=== PATIENT | male | born 1965 | race Caucasian/White ===

== ENCOUNTER 2018-04-28 08:07 | Emergency (ER) | payer SELFPAY ==
[2018-04-28] MEDS ORDERED: Nitroglycerin 0.4 MG Tab.SL SL PRN (08:22)
[2018-04-28] MEDS ORDERED: Aspirin 81 MG Tab.Chew PO ONE (08:22)
[2018-04-28] MEDS ORDERED: Sodium Chloride 0.9% 10 ML Syringe FLUSH PRN (08:22)
[2018-04-28] MEDS ORDERED: Aspirin 81 MG Tab.Chew ONE (08:23)
[2018-04-28] MEDS: Morphine 4 MG/ML Syringe IVPUSH PRN ×2 (08:27→11:01)
--- NOTE | 2018-04-28 08:27 | EDM.PDOC ---
ED HPI GENERAL MEDICAL PROBLEM - General Chief Complaint: Chest Pain Stated Complaint: CHEST PAIN Time Seen by Provider: 04/28/18 08:24 Source of Information: Reports: Patient, Family, Old Records, RN Notes Reviewed History Limitations: Reports: No Limitations - History of Present Illness INITIAL COMMENTS - FREE TEXT/NARRATIVE: 53-year-old gentleman presents to the emergency department today complaint of chest pressure, he has a known history coronary artery disease recently underwent stenting in January of this year 1 in the [facility]. Last night he initially had some indigestion eye this morning he was going out for a walk developed chest pain rated it 7 out of 10 he did take 1 nitroglycerin which provided some relief dropped his pain to 4 out of 10 he denies any nausea shortness of breath diaphoresis Chest Pain Score (Numeric/FACES): 4 - Related Data Allergies Allergy/AdvReac Type Severity Reaction Status Date / Time No Known Allergies Allergy Verified 11/28/14 10:28 Home Meds: Home Meds Albuterol Sulfate [Proair Hfa] 1 inh INH Q4H PRN 04/28/18 [History] Aspirin [Adult Aspirin] 1 tab PO DAILY 04/28/18 [History] Clopidogrel [Plavix] 1 tab PO DAILY 04/28/18 [History] EPINEPHrine [Epinephrine] 1 injection SQ ASDIRECTED 04/28/18 [History] Losartan [Cozaar] 1 tab PO DAILY 04/28/18 [History] Metoprolol Succinate 1 tab PO DAILY 04/28/18 [History] Omeprazole 20 mg PO DAILY 04/28/18 [History] Past Medical History Cardiovascular History: Reports: CAD, High Cholesterol, Hypertension, CT Musculoskeletal History: Reports: Back Pain, Chronic - Past Surgical History Cardiovascular Surgical History: Reports: Coronary Artery Stent GI Surgical History: Reports: Colon Musculoskeletal Surgical History: Reports: Arthroscopic Knee Social & Family History - Tobacco Use Smoking Status *Q: Never Smoker - Caffeine Use Caffeine Use: Reports: Coffee - Recreational Drug Use Recreational Drug Use: No ED ROS GENERAL - Review of Systems Review Of Systems: See Below Constitutional: Reports: No Symptoms HEENT: Reports: No Symptoms Respiratory: Reports: No Symptoms Cardiovascular: Reports: Chest Pain GI/Abdominal: Reports: No Symptoms : Reports: No Symptoms Musculoskeletal: Reports: No Symptoms Skin: Reports: No Symptoms Neurological: Reports: No Symptoms ED EXAM, GENERAL - Physical Exam Exam: See Below Free Text/Narrative:: General: Male, not in any distress, alert and oriented x3 HEENT: head is atraumatic normocephalic, eyes pupils equal round reactive to light, sclera clear no conjunctivitis appreciated. Ears tympanic membranes clear and joiner landmarks and light reflex are present bilaterally canals are clear. Nose no septal deviation, nares are clear, no blood present. Mouth mucosa is moist and pink no erythema or exudate noted in soft palate, tongue is midline uvula is midline, dentition is intact. Neck: Supple no thyromegaly no tracheal deviation. Nodes: Cervical nodes subclavicular nodes nontender no palpable lymphadenopathy noted. Lungs: clear to auscultation bilaterally with symmetrical respirations, no adventitious noise appreciated. CV: Regular rate and rhythm S1 and S2 appreciated no murmurs rubs or gallops noted. Abdomen: Soft, nontender, no palpable masses or organomegaly appreciated, no distention no guarding bowel sounds are present, . Neuro: Cranial nerves II through XII grossly intact Skin: Warm and dry, intact Extremities: No lower extremity edema appreciated, Course - Vital Signs Last Recorded V/S: Last Vital Signs Temp 95.8 F 04/28/18 08:24 Pulse 71 04/28/18 08:24 Resp 12 04/28/18 08:24 BP 107/66 04/28/18 08:24 Pulse Ox 98 04/28/18 08:24 - Orders/Labs/Meds Orders: Active Orders 24 hr Category Date Time Status Cardiac Monitoring [RC] .As Directed Care 04/28/18 08:23 Active EKG Documentation Completion [RC] ASDIRECTED Care 04/28/18 08:23 Active Peripheral IV Care [RC] . DIRECTED Care 04/28/18 08:23 Active Chest 1V Frontal [CR] Stat Exams 04/28/18 08:23 Taken Heparin Sodium/D5W [Heparin 25,000 Units in D5W 500 ML] Med 04/28/18 09:30 Active 25,000 units in 500 ml IV TITRATE Morphine Med 04/28/18 08:22 Active 4 mg IVPUSH Q10M PRN Nitroglycerin [Nitrostat] Med 04/28/18 08:22 Active 0.4 mg SL Q5M PRN Sodium Chloride 0.9% [Saline Flush] Med 04/28/18 08:22 Active 10 ml FLUSH ASDIRECTED PRN Peripheral IV Insertion Adult [OM.PC] Stat Oth 04/28/18 08:22 Ordered Saline Lock Insert [OM.PC] Stat Oth 04/28/18 08:22 Ordered EKG 12 Lead [EK] Stat Ther 04/28/18 08:23 Ordered Medication Orders Heparin Sodium/Dextrose (Heparin 25,000 Units In D5w 500 Ml) 25,000 units in 500 mls @ 23.405 mls/hr IV TITRATE JORDIN; Protocol Morphine Sulfate (Morphine) 4 mg IVPUSH Q10M PRN PRN Reason: Chest Pain Stop: 04/29/18 08:23 Last Admin: 04/28/18 08:27 Dose: 4 mg Nitroglycerin (Nitrostat) 0.4 mg SL Q5M PRN PRN Reason: Chest Pain Stop: 04/29/18 08:23 Sodium Chloride (Saline Flush) 10 ml FLUSH ASDIRECTED PRN PRN Reason: Keep Vein Open Last Admin: 04/28/18 08:30 Dose: 10 ml Labs: Laboratory Tests 04/28/18 04/28/18 04/28/18 Range/Units 08:25 08:25 08:25 WBC 7.3 (4.5-11.0) K/uL RBC 5.25 (4.30-5.90) M/uL Hgb 16.0 H (12.0-15.0) g/dL Hct 47.0 (40.0-54.0) % MCV 90 (80-98) fL MCH 31 (27-31) pg MCHC 34 (32-36) % Plt Count 238 (150-400) K/uL Neut % (Auto) 51 (36-66) % Lymph % (Auto) 31 (24-44) % [place] % (Auto) 8 H (2-6) % Eos % (Auto) 8 H (2-4) % Baso % (Auto) 1 (0-1) % PT 11.4 (9.5-12.0) sec INR 1.04 (0.80-1.20) Sodium 138 L (140-148) mmol/L Potassium 4.3 (3.6-5.2) mmol/L Chloride 105 (100-108) mmol/L Carbon Dioxide 27 (21-32) mmol/L Anion Gap 10.3 (5.0-14.0) mmol/L BUN 19 H (7-18) mg/dL Creatinine 1.2 (0.8-1.3) mg/dL Est Cr Clr Drug Dosing 78.14 mL/min Estimated GFR (MDRD) > 60 (>60) Glucose 114 H (74-106) mg/dL Calcium 8.5 (8.5-10.1) mg/dL Total Bilirubin 0.4 (0.2-1.0) mg/dL AST 34 (15-37) U/L ALT 44 (12-78) U/L Alkaline Phosphatase 51 (46-116) U/L CK-MB (CK-2) 3.0 (0-3.6) mg/mL Troponin I < 0.017 (0.000-0.056) ng/mL Total Protein 6.9 (6.4-8.2) g/dL Albumin 3.4 (3.4-5.0) g/dL Globulin 3.5 (2.3-3.5) g/dL Albumin/Globulin Ratio 1.0 L (1.2-2.2) Meds: Medications Generic Name Dose Route Start Last Admin Trade Name Freq PRN Reason Stop Dose Admin Heparin Sodium/Dextrose 25,000 units in 500 mls @ 23.405 mls/hr 04/28/18 09: 30 Heparin 25,000 Units In D5w 500 Ml IV TITRATE JORDIN Protocol 12 UNITS/KG/HR Morphine Sulfate 4 mg 04/28/18 08:22 04/28/18 08:27 Morphine IVPUSH 04/29/18 08:23 4 mg Q10M PRN Administration Chest Pain Nitroglycerin 0.4 mg 04/28/18 08:22 Nitrostat SL 04/29/18 08:23 Q5M PRN Chest Pain Sodium Chloride 10 ml 04/28/18 08:22 04/28/18 08:30 Saline Flush FLUSH 10 ml ASDIRECTED PRN Administration Keep Vein Open Discontinued Medications Generic Name Dose Route Start Last Admin Trade Name Freq PRN Reason Stop Dose Admin Aspirin 324 mg 04/28/18 08:22 04/28/18 08:29 Aspirin PO 04/28/18 08:23 243 mg ONETIME ONE Administration Aspirin Confirm 04/28/18 08:23 04/28/18 08:30 Aspirin Administered 04/28/18 08:24 Not Given Dose 243 mg .ROUTE .STK-MED ONE Heparin Sodium (Porcine) 4,000 units 04/28/18 09:16 04/28/18 09:24 Heparin Sodium IVPUSH 04/28/18 09:17 4,000 units ONETIME ONE Administration Departure - Departure Time of Disposition: 09:37 Disposition: DC/Tfer to Acute Hospital 02 Reason for Transfer *Q: Primary PCI Indicated Condition: Good Clinical Impression: Acute coronary syndrome Referrals: Harish Maldonado MD [Primary Care Provider] - Forms: ED Department Discharge - My Orders Last 24 Hours: My Active Orders 04/28/18 08:22 Morphine 4 mg IVPUSH Q10M PRN Nitroglycerin [Nitrostat] 0.4 mg SL Q5M PRN Sodium Chloride 0.9% [Saline Flush] 10 ml FLUSH ASDIRECTED PRN Peripheral IV Insertion Adult [OM.PC] Stat Saline Lock Insert [OM.PC] Stat 04/28/18 08:23 Cardiac Monitoring [RC] .As Directed EKG Documentation Completion [RC] ASDIRECTED Peripheral IV Care [RC] . DIRECTED Chest 1V Frontal [CR] Stat EKG 12 Lead [EK] Stat 04/28/18 09:30 Heparin Sodium/D5W [Heparin 25,000 Units in D5W 500 ML] 25,000 units in 500 ml IV TITRATE - Assessment/Plan Last 24 Hours: My Active Orders 04/28/18 08:22 Morphine 4 mg IVPUSH Q10M PRN Nitroglycerin [Nitrostat] 0.4 mg SL Q5M PRN Sodium Chloride 0.9% [Saline Flush] 10 ml FLUSH ASDIRECTED PRN Peripheral IV Insertion Adult [OM.PC] Stat Saline Lock Insert [OM.PC] Stat 04/28/18 08:23 Cardiac Monitoring [RC] .As Directed EKG Documentation Completion [RC] ASDIRECTED Peripheral IV Care [RC] . DIRECTED Chest 1V Frontal [CR] Stat EKG 12 Lead [EK] Stat 04/28/18 09:30 Heparin Sodium/D5W [Heparin 25,000 Units in D5W 500 ML] 25,000 units in 500 ml IV TITRATE Plan: Assessment Acuity = acute Site and laterality = coronary syndrome complicated patient with known history coronary artery disease Etiology = suspicious for underlying exacerbation coronary artery disease Manifestations = chest pain atypical Location of injury = Home Lab values = CBC, CMP, troponin, CK-MB unremarkable chest x-ray I did review films myself I cannot appreciate any acute process, the official read from radiology is pending EKG reveals sinus rhythm there is T-wave inversions in 1 aVL, Q waves in V1 and V2 there is no ST depressions or elevations EKG is similar to EKG from January of this year Plan Called discussed case with mail room from [facility] Dr. Cutler who is concerned of ongoing coronary artery disease and recommended catheterization, plan to transfer via EMS services ground heparin bolus and heparin drip initiated to the [facility] facility for cardiac catheterization. The clinic discussed case with hospitalist instructional writer Dr. Martino who kindly accepted the patient in transport This note was dictated using [employer] voice recognition software please call with any questions on syntax or grammar.
[2018-04-28] MEDS ORDERED: Heparin Sodium 5,000 Units/ML Vial IVPUSH ONE (09:16)
[2018-04-28] MEDS ORDERED: Heparin Sodium/D5W 25,000 UNITS/500 ML BAG IV SCH (09:30)
[2018-04-28 10:45] VITALS: BP 117/84
--- NOTE | 2018-04-30 08:43 | CR ---
CHEST: Portable CLINICAL HISTORY:Chest pain COMPARISON:CT February 09, 2018 FINDINGS: Lung macdonald are clear heart size and pulmonary vascularity are normal.. IMPRESSION: No acute cardiopulmonary process or significant change from prior study
== END 2018-04-28 11:06 ==
LOC: JP.ED 08:07
DX: I24.9 Acute ischemic heart disease, unspecified (principal); I10 Essential (primary) hypertension; I25.2 Old myocardial infarction; Z79.82 Long term (current) use of aspirin
CPT/HCPCS: 36415; 71045; 80053; 82553; 84484; 85025; 85610; 93005; 96374; 96375; 96376; 99285; A9270; J1644; J2270; J7050

== ENCOUNTER 2022-03-10 08:36 | Day surgery (SDC) | payer SELFPAY ==
[2022-03-10] MEDS ORDERED: Lactated Ringers 1,000 ML IV SCH (09:15)
[2022-03-10] MEDS ORDERED: fentaNYL 100 MCG/2 ML SDV ONE (09:25)
[2022-03-10] MEDS ORDERED: Propofol 200 MG/20 ML SDV ONE (09:25)
[2022-03-10] MEDS ORDERED: Midazolam 1 MG/ML 2 ML SDV ONE (09:25)
[2022-03-10] MEDS ORDERED: Glycopyrrolate 0.2 MG/ML 2 ML SDV ONE (10:32)
[2022-03-10 11:37] VITALS: BP 131/81; PULSE 86
== END 2022-03-10 11:00 | disposition home or self-care (01) ==
LOC: JP.SDS 08:36
PROVIDERS: ATTEND Surgery
DX: R13.10 Dysphagia, unspecified (principal); K44.9 Diaphragmatic hernia without obstruction or gangrene; T18.2XXA Foreign body in stomach, initial encounter; I25.2 Old myocardial infarction; I10 Essential (primary) hypertension; K21.9 Gastro-esophageal reflux disease without esophagitis; Z01.812 Encounter for preprocedural laboratory examination; Z20.822 Contact with and (suspected) exposure to COVID-19
CPT/HCPCS: J2250; J2704; J3010; J3490; J7120; U0002

== ENCOUNTER 2022-05-17 05:31 | Day surgery (SDC) | payer SELFPAY ==
[2022-05-17] MEDS: Dextrose 5%-Lactated Ringers 1,000 ML IV SCH (06:19)
[2022-05-17] MEDS ORDERED: Propofol 200 MG/20 ML SDV ONE (07:07)
[2022-05-17] MEDS ORDERED: Midazolam 1 MG/ML 2 ML SDV ONE (07:08)
[2022-05-17] MEDS ORDERED: fentaNYL 100 MCG/2 ML SDV ONE (07:08)
[2022-05-17 08:45] VITALS: BP 102/72; PULSE 64
== END 2022-05-17 09:03 | disposition home or self-care (01) ==
LOC: JP.SDS 05:31
PROVIDERS: ATTEND Surgery
DX: Z12.11 Encounter for screening for malignant neoplasm of colon (principal); K63.5 Polyp of colon; K44.9 Diaphragmatic hernia without obstruction or gangrene; K29.60 Other gastritis without bleeding; K22.89 Other specified disease of esophagus; K21.9 Gastro-esophageal reflux disease without esophagitis; I25.2 Old myocardial infarction; Z87.19 Personal history of other diseases of the digestive system; Z86.010 Personal history of colon polyps; Z88.8 Allergy status to other drugs, medicaments and biological substances; Z79.899 Other long term (current) drug therapy
CPT/HCPCS: 43239; 45385; 87081; 88305; J2250; J2704; J3010; J7121